=== PATIENT | female | born 1945 | race Two or more races ===

== ENCOUNTER 2022-05-11 11:25 | Inpatient (IN) | payer MEDICARE, OTHER, SELFPAY ==
[2022-05-11] VITALS (14 sets, daily range): BP systolic 117–154; BP diastolic 32–66; PULSE 71–87; RESP 14–20; TEMP 36.1–37.1; O2SAT 94–98; BMI 23.8
--- NOTE | ~2022-05-11 | NM_ITS ---
EXAMINATION: NM LUNG IMAGE PERFUSION CLINICAL INFORMATION: Coughing up blood. Question PE COMPARISON: Chest x-ray 05/11/2022 TECHNIQUE: Following intravenous administration of 3.1 mCi of technetium 99m MAA, imaging of both lungs were obtained in multiple projections. Ventilation study was not performed. FINDINGS: On perfusion exam there is normal flow seen to the entire left lung without any segmental or subsegmental defect. The right lung is expanded however there is diminished activity seen in the right upper lobe and right midlung but no focal segmental or subsegmental defects seen. There is diminished activity in right lung could be due to soft tissue attenuation due to thickening of right anterior chest wall. NM/NM pul perfusion IMPRESSION: No segmental or subsegmental defect seen in the lungs to suspect any PE. However there is diminished activity seen in the right upper and midlung likely secondary to chest wall attenuation
--- NOTE | ~2022-05-11 | XR_ITS ---
EXAMINATION: XR CHEST CLINICAL INFORMATION: Coughing up blood. COMPARISON: None TECHNIQUE: Frontal view of the chest was obtained. FINDINGS: The lungs appear clear. Post surgical changes are seen in the right lung with chain sutures in the upper lobe. The heart is mildly enlarged. The mediastinal structures are unremarkable. Mild thoracic dextro scoliosis. A pacer device is noted in place. Small hiatal hernia. XR/XR chest 1V IMPRESSION: 1. Postsurgical changes in the right lung without acute cardiopulmonary process. 2. Mild cardiac enlargement. 2. Small hiatal hernia.
--- NOTE | ~2022-05-11 | CT_ITS ---
EXAMINATION: CT ABDOMEN AND PELVIS WITHOUT CONTRAST CLINICAL INFORMATION: Weakness, bloody stool, anemia and a 2 renal insufficiency COMPARISON: None TECHNIQUE: Multidetector volumetric imaging was performed from the superior aspect of the liver through the pubic symphysis. Sagittal and coronal reformatted images were obtained on the technologist's workstation. This CT examination was performed using dose optimization techniques as appropriate, variously including the following: *Automated exposure control *Adjustment of mA and/or kV according to patient size (this includes techniques or standardized protocols for targeted exams where dose is matched to indication/reason for exam; i.e. extremities or head) *Use of iterative reconstruction technique DLP: 529 mGy-cm FINDINGS: LUNG BASES: The visualized lung bases are clear. There is a battery in the left lateral chest wall and lead extending toward the sternum. Heart is slightly enlarged. There is a small pericardial. There is an esophageal hernia. LIVER, GALLBLADDER, AND BILIARY TREE: There are cirrhotic changes of the liver. There may be small gallstones. No focal liver lesion. No biliary duct dilatation. PANCREAS: Unremarkable. SPLEEN: Unremarkable. ADRENAL GLANDS: Unremarkable. KIDNEYS AND URETERS: The kidneys are normal in size, shape, and attenuation. No hydronephrosis, hydroureter, or calculi seen. No perinephric stranding. BLADDER: Unremarkable. GASTROINTESTINAL TRACT: There is mild diverticulosis of the colon. No evidence of diverticulitis The small and large bowel are otherwise unremarkable. The appendix is unremarkable. ABDOMINAL WALL: Small umbilical hernia containing fat. LYMPH NODES: Normal. VASCULAR: There is evidence of atherosclerotic disease. No aneurysm. PELVIC VISCERA: Unremarkable. OSSEOUS STRUCTURES: Old left pubic rami fractures. No acute fracture. Degenerative changes of the spine. CT/CT abdomen pelvis wo con IMPRESSION: No acute findings. Mild cirrhotic changes of the liver. Diverticulosis of the colon. Esophageal hernia. Fleischner guidelines were followed.
--- NOTE | 2022-05-11 11:48 | ECG_ITS ---
Test Reason : weakness Blood Pressure : / mmHG Vent. Rate : 068 BPM Atrial Rate : 068 BPM P-R Int : 096 ms QRS Dur : 146 ms QT Int : 448 ms P-R-T Axes : 023 -71 063 degrees QTc Int : 476 ms Sinus rhythm with short AL Left axis deviation Right bundle branch block Septal infarct , age undetermined Abnormal ECG No previous ECGs available Referred By: Generic ED Physician Electronically Signed By:KELSIE GALVIN MD
[2022-05-11 12:02] LABS: MANUAL DIFF FLAG NO
[2022-05-11 12:08] LABS: Basophils Percent Auto 0.1 % (0-2); Eosinophils Absolute Auto 0.1 X10*3/uL (0.0-0.4); Eosinophils Percent Auto 1.6 % (0-4); Hematocrit 22.1 % (37.0-47.0); Imm Gran Abs Auto 0.06 X10*3/uL (0.00-0.03); Imm Gran Pct Auto 0.7 % (0.0-0.4); Lymphocytes Absolute Auto 1.2 X10*3/uL (1.2-4.9); Lymphocytes Percent Auto 14.2 % (20-40); Mean Corpuscular HGB Conc 31.2 g/dl (31.0-35.0); Mean Corpuscular Hemoglobin 27.8 pg (27.0-33.0); Mean Corpuscular Volume 89.1 fL (80.0-98.0); Mean Platelet Volume 9.2 fL (9.4-12.3); Monocytes Absolute Auto 0.4 X10*3/uL (0.1-1.2); Monocytes Percent Auto 4.6 % (2-11); Neutrophils Absolute Auto 6.4 x10*3/uL (2.0-8.3); Neutrophils Percent Auto 78.8 % (45-73); Platelet Count 206 X10*3/uL (160-400); Red Blood Count 2.48 X10*6/uL (4.20-5.50); Red Cell Distribution Width 17.3 % (11.0-16.0); White Blood Count 8.1 X10*3/uL (4.8-10.8)
[2022-05-11 12:15] LABS: Hemoglobin 6.9 g/dl (12.0-16.0)
[2022-05-11 12:22] LABS: Anion Gap 15 (12-20); Blood Urea Nitrogen 55 mg/dL (9-16); Calcium 8.7 mg/dL (8.4-10.2); Carbon Dioxide 21 mmol/L (22-29); Chloride 106 mmol/L (96-108); Creatinine Clr Calc Pharmacy 25.3; Estimated Glomerular Filt Rate 28; Glucose Random 115 mg/dL (60-115); Potassium 4.2 mmol/L (3.3-5.1); Sodium 138 mmol/L (135-145)
[2022-05-11 12:23] LABS: B Type Natriuretic Peptide 346 pg/mL (<100); Troponin-I High Sensitivity 15.6 ng/L (<3.5-17.0)
--- NOTE | 2022-05-11 12:47 | ED_ITS ---
HPI - Weakness General Chief complaint: General Medical Stated complaint: Anemic/Weakness Time Seen by Provider: 05/11/22 12:15 Source: patient and family (Daughter in-law bedside who is signing and telling history) Mode of arrival: ambulatory Limitations: other (Patient has a history of dementia per daughter in-law and she is deaf and is not that great with sign language per daughter in-law) History of Present Illness HPI Narrative: 77-year-old female who is deaf and non verbal, demented who also has a past me dical history of hyperlipidemia, hypertension, CHF, cardiovascular disease status post defibrillator 4-5 years ago currently on Brilinta and aspirin,, asthma, pneumothorax from coughing too hard per daughter in-law, GERD presenting to the ED with her daughter in-law who is signing and telling us the history presenting with complaints of generalized weakness, increased confusion, coughing up pink tinge sputum, with associated nausea/vomiting, abdominal pain and bright red blood stools that the [id number] noticed on . She reports she is unsure if the patient is actually vomiting up blood because she noticed blood in the stool although she is not certain about the blood in the vomit. Daughter in-law also noticed that she has been short of breath especially with walking. She reports that she is not short of breath with laying down flat. She denies any fevers, chills, dizziness, headaches, change in vision, neck pain/stiffness, chest pain, back pain, dysuria, hematuria, abn ormal vaginal discharge, palpitations or paresthesias, lower extremity edema or calf tenderness, recent travel or sick contacts or any other symptoms complaints or concerns at this time. MD Complaint: generalized weakness Onset (ago): day(s) (5) Duration: constant and progressively worsening Location: generalized Associated symptoms: confusion, nausea/vomiting and other (Cough with hemoptysis, abdominal pain and bloody stools) Related Data Allergies Allergy/AdvReac Type Severity Reaction Status Date / Time bee pollen [bee stings] Allergy Unknown Verified 05/11/22 11:45 Review of Systems Review of Systems: Constitutional : No Weight loss, No Fever, No Chills, No Night Sweats, + Fatigue, + Malaise ENT/Mouth : No Hearing loss, No Ear Pain, No Nasal Congestion, No Sinus Pain, No Hoarseness, No sore throat, No Rhinorrhea, No Swallowing Difficulty Eyes: No Eye Pain, No Swelling, No Redness, No Foreign Body, No Discharge, No Vision Changes Cardiovascular : No Chest Pain, No SOB, No Dyspnea on Exertion, No Orthopnea, No Edema, No Palpitations Respiratory : + Cough, + hemoptysis, No Sputum, No Wheezing, No Smoke Exposure, No Dyspnea Gastrointestinal : + Nausea, + Vomiting, No Diarrhea, No Constipation, + abdominal Pain, + Hematochezia, No Melena Genitourinary : no irregular bleeding, No Dysuria, No Urinary Frequency, No Hematuria, No Urinary Incontinence, No Urgency, No Flank Pain, No Urinary Flow Changes, No Hesitancy Musculoskeletal : No joint pain, + Myalgias, No Joint Swelling Skin : No Skin Lesions, No rash Neuro : + general Weakness, No focal weakness, No Numbness, No Paresthesias, No Loss of Consciousness, No Dizziness, No Headache Psych : No Anxiety/Panic, No Depression, No SI/HI/AH/VH, No Social Issues, Heme/Lymph: No Bruising, No Bleeding,No Lymphadenopathy Endocrine : No Polyuria, No Polydipsia, No Temperature Intolerance Yes all other systems are reviewed and are negative [facility] Past Medical History Attestation statement: The following information was validated with the patient. Source: old records reviewed, obtained from family and nursing notes reviewed Medical History (Updated 05/11/22 @ 17:39 by Pam Covington NP) Coronary artery disease Deaf Dementia Diverticulosis GERD (gastroesophageal reflux disease) Hiatal hernia Hypertension Liver cirrhosis Scoliosis Surgical History (Updated 05/11/22 @ 17:35 by Pam Covington NP) History of permanent cardiac pacemaker placement Social History Social History Alcohol intake: never Patient Tobacco Use Status: Never used Tobacco Use of substances other than those prescribed or required for medical reasons: No Advance Directives: Yes Advance Directives Information Provided: No Advance Directives on File: No Physical Exam Vital Signs: Vital Signs: Last Vital Signs Temp 98.2 F 05/11/22 16:55 Pulse 80 05/11/22 16:55 Resp 16 05/11/22 16:55 BP 140/60 H 05/11/22 16:55 Pulse Ox 98 05/11/22 15:36 O2 Del Method 05/11/22 15:36 BMI result Body Mass Index 23.8 vital signs have been reviewed as normal and appeared to be correct. Blood pressure 124/32. Heart rate normal. Respiration rate normal. Temperature normal. Oxygen saturation normal. Appearance: Alert. Oriented at baseline tper daughter in law. No acute distress. Head: Normal external exam. Normocephalic. Atraumatic. Eyes: PERRLA. EOMI. Conjunctiva and sclera normal. Eyelids normal. ENT: Pharynx normal. Uvula midline. Moist mucous membranes. No lesions/ulcerations or masses noted on the tongue. Normal voice. No trismus noted. No drooling noted. No muffled voice noted. Neck: Normal inspection. Neck supple. FROM. No adenopathy. Thyroid Normal. No tracheal deviation noted. No crepitus is noted. No meningeal signs. No neck mass noted. No signs of trauma noted. CVS: Normal heart rate and rhythm. Heart sound normal. Pulses normal throughout. No murmurs/rales/gallops. Respiratory: No respiratory distress. Painless inspiration. Breath sounds normal. No wheezes/rales/rhonchi noted. Chest nontender. No crepitus is noted. No signs of trauma noted. No accessory muscle usage noted or decreased air movement noted. Abdomen: Soft and mild tenderness to the right lower quadrant/suprapubic area. Bowel sounds normal in all 4 quadrants. No distention noted. No organomegaly noted. No visible injury noted. Gu: Supervised by DAVID Nuñez no hemorrhoids noted. Normal sphincter tone/rectal tone. Patient noted to have dark/light brown-colored stool no melena and no bright red blood on exam at this time. Back: No CVA tenderness. Full range of motion noted. Nontender. No signs of trauma. Patient neuro intact bilaterally and distally on all 4 extremities. Patient's reflexes intact bilaterally and distally on all 4 extremities. No rashes/lesion/induration/fluctuance or signs of infection noted. Skin: Skin warm and dry. Normal skin color. Normal skin turgor. No rashes/lesions/lacerations noted. Extremities: No lower extremity edema. No calf tenderness is noted. Extremities exhibit normal range of motion and nontender. Neuro: Oriented. No motor deficit. No sensory deficit. Reflexes normal. Normal steady gait. No focal neuro deficits noted. CN's II-XII intact bilaterally? Vascular: + radial pulses/+ 2 distal pedal pulses/+2 dorsalis pedis b/l. Normal cap refill. No cyanosis noted to upper extremity nails and lower extremity toes nails. Course Course Course Narrative: 12:35pm - 77-year-old female who is deaf and non verbal, demented who also has a past medical history of hyperlipidemia, hypertension, CHF, cardiovascular disease status post defibrillator 4-5 years ago currently on Brilinta and aspirin,, asthma, pneumothorax from coughing too hard per daughter in-law, GERD presenting to the ED with her daughter in-law who is signing and telling us the history presenting with complaints of generalized weakness, increased confusion, coughing up pink tinge sputum, with associated nausea/vomiting, abdominal pain and bright red blood stools that the [id number] noticed on . She reports she is unsure if the patient is actually vomiting up blood because she n oticed blood in the stool although she is not certain about the blood in the vomit. Daughter in-law also noticed that she has been short of breath especially with walking. She reports that she is not short of breath with laying down flat. I received a critical results from the lab of the patient's H&H of 6.9/22.1 therefore the charge nurse brought the patient back as soon as possible and I evaluate the patient as soon as possible. Plan: Will obtain blood type and screen, provide 2 L of IV fluids due to patient's SUSAN of BUN and creatinine 55/1.78. BNP 346. Troponin 15.6 will be repeated. I did also perform a stool occult. I ordered 2 packs of red blood cells and daughter in-law with patient at bedside who is agreeable sign blood transfusion consent form. Will also obtain a V/Q scan to rule out PE an a CT scan abdomen pelvis without IV contrast due to patient's kidney function to evaluate for possible intra-abdominal bleeding and re-evaluate. Reevaluation(s) Reevaluation #1: - chest x-ray revealed postsurgical changes and right lung without acute pulmonary or cardio processes. Mild cardiac enlargement. Small hiatal hernia. Otherwise no other acute processes were noted. - CT scan abdomen pelvis without IV contrast revealed mild cirrhotic changes of the liver. Diverticulosis of colon. Esophageal hernia. Otherwise no other acute processes were noted. - patient was positive stool occult. - UA revealed positive leukocytes otherwise negative for UTI at this time. - V/Q scan negative. Would mid at this time for anemia with positive stool occult and SUSAN. Time: 17:11 MDM - Weakness Medical Records Attestation: I reviewed the patient's medical records. Lab Data Attestation: I reviewed the patient's lab results. Result diagrams: 05/11/22 11:57 05/11/22 11:57 Labs: Lab Results 05/11/22 05/11/22 05/11/22 Range/Units 11:57 11:57 11:57 WBC 8.1 (4.8-10.8) X10*3/uL RBC 2.48 L (4.20-5.50) X10*6/uL Hgb 6.9 L* (12.0-16.0) g/dl Hct 22.1 L (37.0-47.0) % MCV 89.1 (80.0-98.0) fL MCH 27.8 (27.0-33.0) pg MCHC 31.2 (31.0-35.0) g/dl RDW 17.3 H (11.0-16.0) % Plt Count 206 (160-400) X10*3/uL MPV 9.2 L (9.4-12.3) fL Immature Gran % (Auto) 0.7 H (0.0-0.4) % Neut % (Auto) 78.8 H (45-73) % Lymph % (Auto) 14.2 L (20-40) % [place] % (Auto) 4.6 (2-11) % Eos % (Auto) 1.6 (0-4) % Baso % (Auto) 0.1 (0-2) % Lymph # (Auto) 1.2 (1.2-4.9) X10*3/uL [place] # (Auto) 0.4 (0.1-1.2) X10*3/uL Eos # (Auto) 0.1 (0.0-0.4) X10*3/uL Baso # (Auto) 0.0 (0.0-0.2) X10*3/uL Abs Immat Gran (auto) 0.06 H (0.00-0.03) X10*3/uL Absolute Neuts (auto) 6.4 (2.0-8.3) x10*3/uL Absolute Nucleated RBC 0.000 (0.0-0.012) X10*3/uL Nucleated RBC % (auto) 0.0 (0.0-0.2) /100WBC Sodium 138 (135-145) mmol/L Potassium 4.2 (3.3-5.1) mmol/L Chloride 106 (96-108) mmol/L Carbon Dioxide 21 L (22-29) mmol/L Anion Gap 15 (12-20) BUN 55 H (9-16) mg/dL Creatinine 1.78 H (0.5-1.4) mg/dL Estim Creat Clear Calc 25.3 Estimated GFR 28 Random Glucose 115 (60-115) mg/dL Calcium 8.7 (8.4-10.2) mg/dL Magnesium 2.1 (1.6-2.6) mg/dL Total Bilirubin 0.3 (0.0-1.0) mg/dL Direct Bilirubin < 0.2 (0.0-0.5) mg/dL AST 21 (5-31) U/L ALT 13 (0-31) U/L Alkaline Phosphatase 70 (39-117) U/L Troponin I High Sens 15.6 (<3.5-17.0) ng/L B-Natriuretic Peptide 346 H (<100) pg/mL Total Protein 6.7 (6.5-8.0) g/dL Albumin 4.0 (3.5-5.0) g/dL Lipase 76 (8-78) U/L Urine Color Urine Appearance Urine pH (5.0-8.0) Ur Specific [place] (1.005-1.025) Urine Protein (NEG-TRACE) MG/DL Urine Glucose (UA) (NEG) MG/DL Urine Ketones (NEG) MG/DL Urine Blood (NEG) Urine Nitrite (NEG) Ur Leukocyte Esterase (NEG) Urine RBC (0) /HPF Urine WBC (0-4) /HPF Ur Squamous Epith Cells /LPF Urine Bacteria /LPF Stool Occult Blood (NEGATIVE) Blood Type Antibody Screen Crossmatch 05/11/22 05/11/22 05/11/22 Range/Units 12:45 12:48 14:23 WBC (4.8-10.8) X10*3/uL RBC (4.20-5.50) X10*6/uL Hgb (12.0-16.0) g/dl Hct (37.0-47.0) % MCV (80.0-98.0) fL MCH (27.0-33.0) pg MCHC (31.0-35.0) g/dl RDW (11.0-16.0) % Plt Count (160-400) X10*3/uL MPV (9.4-12.3) fL Immature Gran % (Auto) (0.0-0.4) % Neut % (Auto) (45-73) % Lymph % (Auto) (20-40) % [place] % (Auto) (2-11) % Eos % (Auto) (0-4) % Baso % (Auto) (0-2) % Lymph # (Auto) (1.2-4.9) X10*3/uL [place] # (Auto) (0.1-1.2) X10*3/uL Eos # (Auto) (0.0-0.4) X10*3/uL Baso # (Auto) (0.0-0.2) X10*3/uL Abs Immat Gran (auto) (0.00-0.03) X10*3/uL Absolute Neuts (auto) (2.0-8.3) x10*3/uL Absolute Nucleated RBC (0.0-0.012) X10*3/uL Nucleated RBC % (auto) (0.0-0.2) /100WBC Sodium (135-145) mmol/L Potassium (3.3-5.1) mmol/L Chloride (96-108) mmol/L Carbon Dioxide (22-29) mmol/L Anion Gap (12-20) BUN (9-16) mg/dL Creatinine (0.5-1.4) mg/dL Estim Creat Clear Calc Estimated GFR Random Glucose (60-115) mg/dL Calcium (8.4-10.2) mg/dL Magnesium (1.6-2.6) mg/dL Total Bilirubin (0.0-1.0) mg/dL Direct Bilirubin (0.0-0.5) mg/dL AST (5-31) U/L ALT (0-31) U/L Alkaline Phosphatase (39-117) U/L Troponin I High Sens (<3.5-17.0) ng/L B-Natriuretic Peptide (<100) pg/mL Total Protein (6.5-8.0) g/dL Albumin (3.5-5.0) g/dL Lipase (8-78) U/L Urine Color YELLOW Urine Appearance CLEAR Urine pH 6.0 (5.0-8.0) Ur Specific [place] 1.010 (1.005-1.025) Urine Protein NEG (NEG-TRACE) MG/DL Urine Glucose (UA) NEG (NEG) MG/DL Urine Ketones NEG (NEG) MG/DL Urine Blood NEG (NEG) Urine Nitrite NEG (NEG) Ur Leukocyte Esterase 1+ H (NEG) Urine RBC 0 (0) /HPF Urine WBC 0-2 (0-4) /HPF Ur Squamous Epith Cells 1+ /LPF Urine Bacteria 1+ /LPF Stool Occult Blood POSITIVE (NEGATIVE) Blood Type A Positive Antibody Screen NEGATIVE Crossmatch See Detail 05/11/22 Range/Units 15:33 WBC (4.8-10.8) X10*3/uL RBC (4.20-5.50) X10*6/uL Hgb (12.0-16.0) g/dl Hct (37.0-47.0) % MCV (80.0-98.0) fL MCH (27.0-33.0) pg MCHC (31.0-35.0) g/dl RDW (11.0-16.0) % Plt Count (160-400) X10*3/uL MPV (9.4-12.3) fL Immature Gran % (Auto) (0.0-0.4) % Neut % (Auto) (45-73) % Lymph % (Auto) (20-40) % [place] % (Auto) (2-11) % Eos % (Auto) (0-4) % Baso % (Auto) (0-2) % Lymph # (Auto) (1.2-4.9) X10*3/uL [place] # (Auto) (0.1-1.2) X10*3/uL Eos # (Auto) (0.0-0.4) X10*3/uL Baso # (Auto) (0.0-0.2) X10*3/uL Abs Immat Gran (auto) (0.00-0.03) X10*3/uL Absolute Neuts (auto) (2.0-8.3) x10*3/uL Absolute Nucleated RBC (0.0-0.012) X10*3/uL Nucleated RBC % (auto) (0.0-0.2) /100WBC Sodium (135-145) mmol/L Potassium (3.3-5.1) mmol/L Chloride (96-108) mmol/L Carbon Dioxide (22-29) mmol/L Anion Gap (12-20) BUN (9-16) mg/dL Creatinine (0.5-1.4) mg/dL Estim Creat Clear Calc Estimated GFR Random Glucose (60-115) mg/dL Calcium (8.4-10.2) mg/dL Magnesium (1.6-2.6) mg/dL Total Bilirubin (0.0-1.0) mg/dL Direct Bilirubin (0.0-0.5) mg/dL AST (5-31) U/L ALT (0-31) U/L Alkaline Phosphatase (39-117) U/L Troponin I High Sens 16.5 (<3.5-17.0) ng/L B-Natriuretic Peptide (<100) pg/mL Total Protein (6.5-8.0) g/dL Albumin (3.5-5.0) g/dL Lipase (8-78) U/L Urine Color Urine Appearance Urine pH (5.0-8.0) Ur Specific [place] (1.005-1.025) Urine Protein (NEG-TRACE) MG/DL Urine Glucose (UA) (NEG) MG/DL Urine Ketones (NEG) MG/DL Urine Blood (NEG) Urine Nitrite (NEG) Ur Leukocyte Esterase (NEG) Urine RBC (0) /HPF Urine WBC (0-4) /HPF Ur Squamous Epith Cells /LPF Urine Bacteria /LPF Stool Occult Blood (NEGATIVE) Blood Type Antibody Screen Crossmatch Imaging Data Chest x-ray: Attestation: I personally reviewed and interpreted this imaging study as follows: Radiologist's impression: FINDINGS: The lungs appear clear. Post surgical changes are seen in the right lung with chain sutures in the upper lobe. The heart is mildly enlarged. The mediastinal structures are unremarkable. Mild thoracic dextro scoliosis. A pacer device is noted in place. Small hiatal hernia. XR/XR chest 1V IMPRESSION: 1. Postsurgical changes in the right lung without acute cardiopulmonary process. 2. Mild cardiac enlargement. 2. Small hiatal hernia. ? CT scan abdomen pelvis without IV contrast: Attestation: I personally reviewed and interpreted this imaging study as follows: Radiologist's impression: FINDINGS: LUNG BASES: The visualized lung bases are clear. There is a battery in the left lateral chest wall and lead extending toward the sternum. Heart is slightly enlarged. There is a small pericardial. There is an esophageal hernia. LIVER, GALLBLADDER, AND BILIARY TREE: There are cirrhotic changes of the liver. There may be small gallstones. No focal liver lesion. No biliary duct dilatation. PANCREAS: Unremarkable.? SPLEEN: Unremarkable.? ADRENAL GLANDS: Unremarkable.? KIDNEYS AND URETERS: The kidneys are normal in size, shape, and attenuation. No hydronephrosis, hydroureter, or calculi seen. No perinephric stranding. ? BLADDER: Unremarkable.? GASTROINTESTINAL TRACT: There is mild diverticulosis of the colon. No evidence of diverticulitis The small and large bowel are otherwise unremarkable. The appendix is unremarkable.? ABDOMINAL WALL: Small umbilical hernia containing fat.? LYMPH NODES: Normal. VASCULAR: There is evidence of atherosclerotic disease. No aneurysm. PELVIC VISCERA: Unremarkable.? OSSEOUS STRUCTURES: Old left pubic rami fractures. No acute fracture. Degenerative changes of the spine.? CT/CT abdomen pelvis wo con IMPRESSION: No acute findings. Mild cirrhotic changes of the liver. Diverticulosis of the colon. Esophageal hernia. ? Fleischner guidelines were followed. V/Q scan: Attestation: I personally reviewed and interpreted this imaging study as follows: Radiologist's impression: TECHNIQUE: Following intravenous administration of 3.1 mCi of technetium 99m MAA, imaging of both lungs were obtained in multiple projections. Ventilation study was not performed. FINDINGS: On perfusion exam there is normal flow seen to the entire left lung without any segmental or subsegmental defect. The right lung is expanded however there is diminished activity seen in the right upper lobe and right midlung but no focal segmental or subsegmental defects seen. There is diminished activity in right lung could be due to soft tissue attenuation due to thickening of right anterior chest wall. NM/NM pul perfusion IMPRESSION: No segmental or subsegmental defect seen in the lungs to suspect any PE. However there is diminished activity seen in the right upper and midlung likely secondary to chest wall attenuation ECG Data Attestation: I personally reviewed and interpreted this ECG as follows: ECG interpretation date: 05/11/22 ECG interpretation time: 11:52 Interpretation: Sinus rhythm with short [place] interval with ventricular rate of 68 with a left axis deviation right bundle-branch block no acute ischemic change are noted. No prior EKGs to compare to at this time. Critical Care Time Critical Care Time Critical Care Time: Yes Total Critical Care Time: 60 Attestation: I personally attest to this time spent taking care of the patient Discharge Plan Discharge Clinical Impression: Anemia, General weakness, SUSAN (acute kidney injury), Fecal occult blood test positive, Diverticulosis Patient Disposition: Admitted As Inpatient
[2022-05-11 12:58] LABS: OBS Int Ctl Valid YES; OBS1 POSITIVE (NEGATIVE)
--- NOTE | 2022-05-11 13:09 | PC.NURSE ---
pt came in with daughter in law for dizziness and confusion, pt's DIL states that she has been like this for the last 4 days; pt is deaf and communicates via sign language, pt uses a walker when out of the house
[2022-05-11] MEDS: 0.9 % Sodium Chloride 1,000 ML 999 ML IVCONT ×2 (13:15→13:16)
[2022-05-11 14:34] LABS: Appearance Urine CLEAR; Color Urine YELLOW; Glucose Urine UA NEG (NEG); Leukocyte Esterase Urine 1+ (NEG); Nitrite Urine NEG (NEG); UACC Culture Trigger YES; Urine Blood NEG (NEG); Urine Ketones NEG (NEG); Urine Protein NEG (NEG-TRACE)
[2022-05-11 14:44] LABS: Alanine Aminotransferase 13 U/L (0-31); Alkaline Phosphatase 70 U/L (39-117); Aspartate Amino Transferase 21 U/L (5-31); Bilirubin Direct < 0.2 mg/dL (0.0-0.5); Bilirubin Total 0.3 mg/dL (0.0-1.0); Lipase 76 U/L (8-78); Magnesium 2.1 mg/dL (1.6-2.6); Total Protein 6.7 g/dL (6.5-8.0)
[2022-05-11 15:17] LABS: Bacteria Urine 1+ /LPF; Squamous Epithelial Cell Urine 1+ /LPF
[2022-05-11 15:18] LABS: RBC Urine 0 /HPF (0); WBC Urine 0-2 /HPF (0-4)
[2022-05-11 16:06] LABS: Troponin-I High Sensitivity 16.5 ng/L (<3.5-17.0)
--- NOTE | 2022-05-11 17:29 | P.HPHOSP_ITS ---
History of Present Illness Date of Service: 05/11/22 Chief Complaint: blood in stool 69-year-old woman stenting to the ER after being seen by her primary care provider after being found to have bright red blood per rectum per her zonndvuz-qx-adz with whom she lives with. Her efygvvso-nq-vjy was present during the interview and was able to use sign language to translate. She has had generalized weakness, increased confusion and possibly coughing up food pink-tinged sputum with associated nausea vomiting and lower abdominal pain. She has had bright red blood stools that the [id number] had noticed last . The xfokfrcl-lh-rig is unable to quantify any amount of red blood vomitus. Apparently the patient has also had some shortness of breath especially with ambulation. According to the rpfofzlj-yl-hey she has not had any fever, chills, diarrhea, recent travel, recent illness, sick contacts. In the ER, her H&H was noted to be 6.9/22.1, creatinine 1.78 without known baseline , stool occult positive, stable blood pressure, 2 units of packed red blood cells were ordered. Patient be admitted for further management and treatment of acute blood loss anemia. Review of Systems Review of Systems: Yes Unobtainable due to mental status (Difficult to assess as patient is deaf and has a history of dementia) [facility] Medical History Coronary artery disease Deaf Dementia Diverticulosis GERD (gastroesophageal reflux disease) Hiatal hernia Hypertension Liver cirrhosis Scoliosis Surgical History History of permanent cardiac pacemaker placement Social History Household Members: Children Housing: House Do you presently have visiting nurse or other home services: Yes Alcohol intake: never Patient Tobacco Use Status: Never used Tobacco Use of substances other than those prescribed or required for medical reasons: No Currently Displaying Signs/Symptoms of Drug Intoxication Withdrawal: No Have you been hit, kicked, punched, or otherwise hurt by someone within the past year? If so, by whom?: No Do you feel safe in your current relationship?: Yes Is there a partner from a previous relationship who is making you feel unsafe now?: No Are you made to feel afraid or neglected: No Advance Directives: Yes Advance Directives Information Provided: No Advance Directives on File: No Advance Directives Date on File: 05/11/22 Do you have thoughts of harming others: None Do you have a plan to hurt others: No Plan Recently lost weight without trying: No Nutrition Risks: Difficulty swallowing Patient : No service: No Current occupational status: disabled Meds Allergies Allergy/AdvReac Type Severity Reaction Status Date / Time bee pollen [bee stings] Allergy Unknown Verified 05/11/22 11:45 Active Medications: Current Medications Pharmacy Consult (Consult Rx Perform Med Rec) 1 each MISCELLANE ONCE PRN PRN Reason: Consult order Home Medications Medication Instructions Recorded Confirmed Last Taken Type albuterol sulfate 90 mcg/actuation 2 puff inhalation Q4H PRN Wheezing 05/11/22 05/11/22 Unknown History aerosol inhaler (ProAir HFA) apixaban 5 mg tablet (Eliquis) 1 tab PO BID 05/11/22 05/11/22 05/10/22 History aspirin 81 mg chewable tablet 81 mg PO DAILY 05/11/22 05/11/22 05/10/22 History atorvastatin 80 mg tablet 1 tab PO DAILY 05/11/22 05/11/22 05/10/22 History calcium carbonate 600 mg-vitamin 1 tab PO TID 05/11/22 05/11/22 05/10/22 History D3 5 mcg (200 unit) tablet (Calcium 600 + D(3)) carvedilol 6.25 mg tablet 1 tab PO BID 05/11/22 05/11/22 05/10/22 History fluoxetine 40 mg capsule 1 cap PO DAILY 05/11/22 05/11/22 05/10/22 History furosemide 40 mg tablet 1 tab PO DAILY 05/11/22 05/11/22 05/10/22 History gabapentin 100 mg capsule 1 cap PO BID PRN foot pain 05/11/22 05/11/22 Unknown History nitroglycerin 0.4 mg sublingual 0.4 mg sublingual Q5M PRN Chest 05/11/22 0 05/11/22 Unknown History tablet Pain omeprazole 20 mg capsule,delayed 1 cap PO DAILY 05/11/22 05/11/22 05/10/22 History release potassium chloride 20 mEq oral 1 packet PO DAILY 05/11/22 05/11/22 05/10/22 History packet valsartan 40 mg tablet 1 tab PO BID 05/11/22 05/11/22 05/10/22 History Physical Exam Vital Signs and Narrative: Vital Signs: Last Vital Signs Temp 98.2 F 05/11/22 16:55 Pulse 80 05/11/22 16:55 Resp 16 05/11/22 16:55 BP 140/60 H 05/11/22 16:55 Pulse Ox 98 05/11/22 15:36 O2 Del Method 05/11/22 15:36 BMI result Body Mass Index 23.8 Appearing in no acute distress head is normocephalic atraumatic eyes pupils are PERRLA sclera is anicteric mouth throat mucous membranes are intact and moist neck is supple no lymphadenopathy, no JVD noted lung sounds are clear to auscultation heart regular rate rhythm, clear S1, S2 positive bowel sounds, abdomen is soft, nontender neuro patient is alert, deaf Results Labs CBC and Chem 7: 05/12/22 06:10 05/12/22 06:10 Labs: Laboratory Results - last 24 hr 05/11/22 05/11/22 05/11/22 11:57 11:57 11:57 MCV 89.1 MCH 27.8 MCHC 31.2 RDW 17.3 H Plt Count 206 MPV 9.2 L Immature Gran % (Auto) 0.7 H Neut % (Auto) 78.8 H Lymph % (Auto) 14.2 L [place] % (Auto) 4.6 Eos % (Auto) 1.6 Baso % (Auto) 0.1 Lymph # (Auto) 1.2 [place] # (Auto) 0.4 Eos # (Auto) 0.1 Baso # (Auto) 0.0 Abs Immat Gran (auto) 0.06 H Absolute Neuts (auto) 6.4 Absolute Nucleated RBC 0.000 Nucleated RBC % (auto) 0.0 Anion Gap 15 Estim Creat Clear Calc 25.3 Estimated GFR 28 Random Glucose 115 Calcium 8.7 Magnesium 2.1 Total Bilirubin 0.3 Direct Bilirubin < 0.2 AST 21 ALT 13 Alkaline Phosphatase 70 B-Natriuretic Peptide 346 H Total Protein 6.7 Albumin 4.0 Lipase 76 Urine Color Urine Appearance Urine pH Ur Specific [place] Urine Protein Urine Glucose (UA) Urine Ketones Urine Blood Urine Nitrite Ur Leukocyte Esterase Urine RBC Urine WBC Ur Squamous Epith Cells Urine Bacteria Stool Occult Blood Blood Type Antibody Screen Crossmatch 05/11/22 05/11/22 05/11/22 12:45 12:48 14:23 MCV MCH MCHC RDW Plt Count MPV Immature Gran % (Auto) Neut % (Auto) Lymph % (Auto) [place] % (Auto) Eos % (Auto) Baso % (Auto) Lymph # (Auto) [place] # (Auto) Eos # (Auto) Baso # (Auto) Abs Immat Gran (auto) Absolute Neuts (auto) Absolute Nucleated RBC Nucleated RBC % (auto) Anion Gap Estim Creat Clear Calc Estimated GFR Random Glucose Calcium Magnesium Total Bilirubin Direct Bilirubin AST ALT Alkaline Phosphatase B-Natriuretic Peptide Total Protein Albumin Lipase Urine Color YELLOW Urine Appearance CLEAR Urine pH 6.0 Ur Specific [place] 1.010 Urine Protein NEG Urine Glucose (UA) NEG Urine Ketones NEG Urine Blood NEG Urine Nitrite NEG Ur Leukocyte Esterase 1+ H Urine RBC 0 Urine WBC 0-2 Ur Squamous Epith Cells 1+ Urine Bacteria 1+ Stool Occult Blood POSITIVE Blood Type A Positive Antibody Screen NEGATIVE Crossmatch See Detail Imaging Radiologist's Impressions: Impressions Chest X-Ray 05/11/22 12:08 IMPRESSION: 1. Postsurgical changes in the right lung without acute cardiopulmonary process. 2. Mild cardiac enlargement. 2. Small hiatal hernia. Abdomen/Pelvis CT 05/11/22 13:28 IMPRESSION: No acute findings. Mild cirrhotic changes of the liver. Diverticulosis of the colon. Esophageal hernia. Fleischner guidelines were followed. Pulmonary Perfusion Imaging 05/11/22 16:30 IMPRESSION: No segmental or subsegmental defect seen in the lungs to suspect any PE. However there is diminished activity seen in the right upper and midlung likely secondary to chest wall attenuation Assessment and Plan (1) Anemia: Status: Acute Plan 77-year-old woman admitted with acute blood loss anemia with history of being been having dementia. [facility] records have been requested as that was the last hospitalization that she had. Acute blood loss anemia H&H 6.9.1, stool occult positive Order for 2 units of packed red blood cells Follow H&H Ppi GI consultation SUSAN. Unspecified. Baseline unknown Continue with blood transfusion and volume If no improvement consider Nephrology consultation Hypertension Hold medications for now as patient is severely anemic, avoid hypotension continue when blood pressure allows Coronary artery disease Hold asa ? afib hx vs arrythmia has AICD Eliquis listed on med rec please verify with records from [facility] DVT prophylaxis with pneumatic compression boots Attending Dr. Vela Full code Patient likely requires 2 midnights in the hospital for treatment of severe acute blood loss anemia SUSAN requiring blood transfusions, frequent monitoring Quality Stroke Does the patient have a stroke diagnosis?: No VTE Prior VTE?: No VTE Risk Level:: Medical - moderate - high VTE Device Contraindication: N/A - Device Ordered VTE Drug Contraindication: Treatment Not Indicated
--- NOTE | 2022-05-11 18:04 | PC.NURSE ---
PATIENT DAUGHTER IN LAW AT BEDSIDE .
--- NOTE | 2022-05-11 18:18 | PHA.MEDREC ---
Pharmacy Consult ? Medication Reconciliation Pharmacy has completed the medication reconciliation.
--- NOTE | 2022-05-11 18:53 | PC.NURSE ---
Gave report to Niharika SANCHEZ in ED overflow.
--- NOTE | 2022-05-11 19:08 | MHC.CM.PN ---
[facility] 05/11. CM met with patient and daughter in law/HCP Roxanne Gonzalez ([phone]). Son/HCP Raf Gonzalez (same phone number). Pt lives with family. Has life alert and wheeled walker. No services. Pt signs and reads lips. DIL signing. DIL tells CM that patient has dementia and sometimes signs poorly/confused. Vax/boosted x1/[employer]. HCP copy at home. D/C plan: home without services. Family to transport. CM to follow for d/c needs.
[2022-05-11 20:33] LABS: COVID-19 Test Negative (Negative)
[2022-05-11] MEDS: carvediloL 6.25 MG TABLET PO (20:50)
[2022-05-11] MEDS: Calcium + Vitamin D 250 MG TABLET PO (20:50)
[2022-05-11 22:38] LABS: Hematocrit 26.8 % (37.0-47.0); Hemoglobin 8.8 g/dl (12.0-16.0)
[2022-05-12] MEDS: 0.9 % Sodium Chloride Flush 3 ML SYRINGE IVFLUSH ×4 (00:25→23:43)
[2022-05-12] MEDS: Acetaminophen 325 MG TABLET 650 MG PO ×2 (00:31→21:07)
[2022-05-12 03:36] VITALS: BP 144/65; PULSE 70; RESP 18; TEMP 36.1; O2SAT 96
[2022-05-12] MEDS: Omeprazole 20 MG CAPSULE.DR PO (06:12)
[2022-05-12 06:32] LABS: MANUAL DIFF FLAG NO
[2022-05-12 06:46] LABS: Basophils Percent Auto 0.4 % (0-2); Eosinophils Absolute Auto 0.1 X10*3/uL (0.0-0.4); Eosinophils Percent Auto 2.5 % (0-4); Hematocrit 26.8 % (37.0-47.0); Hemoglobin 8.5 g/dl (12.0-16.0); Imm Gran Abs Auto 0.03 X10*3/uL (0.00-0.03); Imm Gran Pct Auto 0.7 % (0.0-0.4); Lymphocytes Absolute Auto 1.1 X10*3/uL (1.2-4.9); Lymphocytes Percent Auto 25.4 % (20-40); Mean Corpuscular HGB Conc 31.7 g/dl (31.0-35.0); Mean Corpuscular Hemoglobin 27.5 pg (27.0-33.0); Mean Corpuscular Volume 86.7 fL (80.0-98.0); Mean Platelet Volume 9.9 fL (9.4-12.3); Monocytes Absolute Auto 0.3 X10*3/uL (0.1-1.2); Monocytes Percent Auto 7.4 % (2-11); Neutrophils Absolute Auto 2.9 x10*3/uL (2.0-8.3); Neutrophils Percent Auto 63.6 % (45-73); Platelet Count 162 X10*3/uL (160-400); Red Blood Count 3.09 X10*6/uL (4.20-5.50); Red Cell Distribution Width 17.6 % (11.0-16.0); White Blood Count 4.5 X10*3/uL (4.8-10.8)
[2022-05-12 06:54] LABS: Anion Gap 12 (12-20); Blood Urea Nitrogen 38 mg/dL (9-16); Calcium 8.3 mg/dL (8.4-10.2); Carbon Dioxide 21 mmol/L (22-29); Chloride 113 mmol/L (96-108); Creatinine Clr Calc Pharmacy 38.8; Estimated Glomerular Filt Rate 45; Glucose Random 95 mg/dL (60-115); Potassium 4.3 mmol/L (3.3-5.1); Sodium 142 mmol/L (135-145)
[2022-05-12 07:22] VITALS: BP 133/61; PULSE 64; RESP 16; TEMP 36.2; O2SAT 95
[2022-05-12] MEDS: Potassium Chloride Packet 20 MEQ PACKET PO (08:28)
[2022-05-12] MEDS: FLUoxetine HCl 20 MG CAPSULE 40 MG PO (08:29)
[2022-05-12] MEDS: carvediloL 6.25 MG TABLET PO ×2 (08:29→21:07)
[2022-05-12] MEDS: Calcium + Vitamin D 250 MG TABLET PO ×3 (08:29→21:07)
[2022-05-12 11:15] VITALS: BP 139/63; PULSE 59; RESP 18; TEMP 36.3; O2SAT 96
--- NOTE | 2022-05-12 14:08 | P.PNIM_ITS ---
Subjective Subjective Date of Service: 05/12/22 Interval History: Patient is deaf, communicating through writing, patient offers no complaints of headache, no nausea, no vomiting, no hemoptysis, no hematemesis, denies abdominal pain, no bright red blood per rectum, no hematochezia or melena Review of Systems Review of Systems: Yes all other systems are reviewed and are negative Physical Exam Vital Signs: Vital Signs: Last Vital Signs Temp 97.4 F 05/12/22 11:15 Pulse 59 05/12/22 11:15 Resp 18 05/12/22 11:15 BP 139/63 05/12/22 11:15 Pulse Ox 96 05/12/22 11:15 O2 Del Method 05/12/22 11:15 BMI result Body Mass Index 23.8 Const: Other: General awake alert x3, resting comfortably in no acute distress. Neck supple no JVD. CVS regular rate rhythm, Respiratory lungs clear to auscultation, no respiratory distress, no wheeze, no rhonchi. Gastrointestinal abdomen soft, nontender, bowel sounds audible, no guarding , no rigidity. Extremities no edema. Neuro nonfocal Skin no rash Psych appropriate affect Objective Data Active Medications Acetaminophen (Acetaminophen 325 Mg Tablet) 650 mg PO Q6H PRN PRN Reason: Pain, Mild (Pain Scale 1-3) Last Admin: 05/12/22 00:31 Dose: 650 mg Documented By: VISHAL Albuterol Sulfate (Albuterol Sulfate 90 Mcg 8 Gm Inhaler) 2 puff INHALE Q4H PRN PRN Reason: Wheezing Calcium Carbonate/Cholecalciferol (Calcium + Vitamin D 250 Mg Tablet) 250 mg PO TID [facility] Last Admin: 05/12/22 08:29 Dose: 250 mg Documented By: CAROLINA Carvedilol (Carvedilol 6.25 Mg Tablet) 6.25 mg PO BID [facility]; Protocol Last Admin: 05/12/22 08:29 Dose: 6.25 mg Documented By: CAROLINA Fluoxetine HCl (Fluoxetine Hcl 20 Mg Capsule) 40 mg PO DAILY [facility] Last Admin: 05/12/22 08:29 Dose: 40 mg Documented By: CAROLINA Gabapentin (Gabapentin 100 Mg Capsule) 100 mg PO BID PRN PRN Reason: foot pain Nitroglycerin (Nitroglycerin 0.4 Mg Tab.Subl) 0.4 mg SUBLINGUAL Q5M PRN PRN Reason: Chest Pain Omeprazole (Omeprazole 20 Mg Capsule.Dr) 20 mg PO DAILY@0630 [facility] Last Admin: 05/12/22 06:12 Dose: 20 mg Documented By: VISHAL Ondansetron HCl (Ondansetron Hcl 4 Mg/2 Ml Vial) 4 mg IVPUSH Q8H PRN PRN Reason: Nausea and Vomiting Pharmacy Consult (Consult Rx Perform Med Rec) 1 each MISCELLANE ONCE PRN PRN Reason: Consult order Potassium Chloride (Potassium Chloride Packet 20 Meq Packet) 20 meq PO DAILY [facility] Last Admin: 05/12/22 08:28 Dose: 20 meq Documented By: CAROLINA Sodium Chloride (0.9 % Sodium Chloride Flush 3 Ml Syringe) 3 ml IVFLUSH QSHIFT [facility] Last Admin: 05/12/22 08:28 Dose: 3 ml Documented By: CAROLINA Labs CBC & Chem 7: 05/12/22 06:10 05/12/22 06:10 Labs: Laboratory Results - last 24 hr 05/11/22 05/11/22 05/11/22 11:57 12:48 14:23 MCV MCH MCHC RDW Plt Count MPV Immature Gran % (Auto) Neut % (Auto) Lymph % (Auto) [place] % (Auto) Eos % (Auto) Baso % (Auto) Lymph # (Auto) [place] # (Auto) Eos # (Auto) Baso # (Auto) Abs Immat Gran (auto) Absolute Neuts (auto) Absolute Nucleated RBC Nucleated RBC % (auto) Anion Gap Estim Creat Clear Calc Estimated GFR Random Glucose Calcium Magnesium 2.1 Total Bilirubin 0.3 Direct Bilirubin < 0.2 AST 21 ALT 13 Alkaline Phosphatase 70 Total Protein 6.7 Albumin 4.0 Lipase 76 Urine Color YELLOW Urine Appearance CLEAR Urine pH 6.0 Ur Specific [place] 1.010 Urine Protein NEG Urine Glucose (UA) NEG Urine Ketones NEG Urine Blood NEG Urine Nitrite NEG Ur Leukocyte Esterase 1+ H Urine RBC 0 Urine WBC 0-2 Ur Squamous Epith Cells 1+ Urine Bacteria 1+ COVID-19 (RUPERTO) COVID-19 Clin Com Blood Type A Positive Antibody Screen NEGATIVE Crossmatch See Detail 05/11/22 05/12/22 05/12/22 20:06 06:10 06:10 MCV 86.7 MCH 27.5 MCHC 31.7 RDW 17.6 H Plt Count 162 MPV 9.9 Immature Gran % (Auto) 0.7 H Neut % (Auto) 63.6 Lymph % (Auto) 25.4 [place] % (Auto) 7.4 Eos % (Auto) 2.5 Baso % (Auto) 0.4 Lymph # (Auto) 1.[address] [place] # (Auto) 0.3 Eos # (Auto) 0.1 Baso # (Auto) 0.0 Abs Immat Gran (auto) 0.03 Absolute Neuts (auto) 2.9 Absolute Nucleated RBC 0.000 Nucleated RBC % (auto) 0.0 Anion Gap 12 Estim Creat Clear Calc 38.8 Estimated GFR 45 Random Glucose 95 Calcium 8.3 L Magnesium Total Bilirubin Direct Bilirubin AST ALT Alkaline Phosphatase Total Protein Albumin Lipase Urine Color Urine Appearance Urine pH Ur Specific [place] Urine Protein Urine Glucose (UA) Urine Ketones Urine Blood Urine Nitrite Ur Leukocyte Esterase Urine RBC Urine WBC Ur Squamous Epith Cells Urine Bacteria COVID-19 (RUPERTO) Negative COVID-19 Clin Com See Note Blood Type Antibody Screen Crossmatch Microbiology Microbiology Results: Microbiology 05/11/22 15:05 Urine Culture - Preliminary Urine clean catch - Urine johns top Enterococcus/Streptococcus sp Assessment and Plan (1) General weakness: Status: Acute (2) Anemia: Status: Acute (3) SUSAN (acute kidney injury): Status: Acute (4) Fecal occult blood test positive: Status: Acute Plan 77-year-old woman admitted with acute blood loss anemia with history of being been having dementia.? [facility] records have been requested as that was the last hospitalization that she had. Acute blood loss anemia No episodes of hematemesis, bright red blood per rectum or hematochezia since admission H&H 6.9/22.1 on admission improved to 8.5/26.8 after 2 units of packed RBC stool occult positive on admission Will check iron studies/normal MCV Continue PPI, since patient is hemodynamically stable with no active bleed plan is to follow CBC next 24 hours if remains stable will discharge her home and will have outpatient endoscopy by Dr Agee early next week SUSAN.? Resolved Hypertension BP stable, home medications on hold follow BP and resume meds as tolerated Coronary artery disease Hold asa resume after GI workup as per GI recommendation Atrial fibrillation has AICD, on Eliquis will hold Eliquis, will recommend to resume after GI workup as per Gastroenterology DVT prophylaxis with pneumatic compression boots Full code Patient will need continued inpatient hospitalization due to severe acute blood loss anemia, need close CBC monitoring. spoke with patient's daughter in law Darby Gonzalez and updated her about treatment plan. Quality Stroke Does the patient have a stroke diagnosis?: No VTE Prior VTE?: No VTE Risk Level:: Medical - moderate - high VTE Device Contraindication: N/A - Device Ordered VTE Drug Contraindication: Treatment Not Indicated
[2022-05-12 15:38] VITALS: BP 130/68; PULSE 65; RESP 16; TEMP 36.1; O2SAT 95
[2022-05-12 20:00] VITALS: BP 141/61; PULSE 78; RESP 17; TEMP 36.3; O2SAT 94
--- NOTE | 2022-05-12 20:09 | PM.GICN ---
History of Present Illness Data of Consult Service Date: 05/12/22 Requesting physician: Jennifer Ennis Primary Care Provider: Jeremy Dennison MD HPI Reason for consult: anemia 69-year-old woman w hx of diverticulosis, dementia, HLP and HTN who I am seeing for assessment for anemia. Limited data from patient due to dementia and deafness, hx from daughter in law Alexus who is HCP. PAtient noted by daughter to have fresh blood in stool at least on one occasion, lso been general unwell for several weeks with poor appetite, weakness and nausea with non bloody emesis. Patient hs not been c/o abdominal pain, no chest pain but has been SOB labs with HGB 6.9 received 2 units and incremented appropriately to close to 9 g/dl. Not had any bleeding noted since stay in hospital for last few days, been eating food given to her. Unknown if she has had egd, colonoscopy in past. she is on eliquis and aspirin and these have been held. Imaging with possible cirrhosis but normal LFT< per daughter she was a heavy vodka drinker up till 5 yrs ago Review of Systems Review of Systems: Yes Unobtainable due to mental condition and Unobtainable due to mental status PMFSH Past Medical History Medical History (Updated 05/12/22 @ 20:28 by Cristina Garner MD) Coronary artery disease Deaf Dementia Diverticulosis GERD (gastroesophageal reflux disease) Hiatal hernia Hypertension Liver cirrhosis Scoliosis Family History Pertinent family history: unknown Surgical History Surgical History History of permanent cardiac pacemaker placement Social History Social History Household Members: Children Housing: House Do you presently have visiting nurse or other home services: Yes Alcohol intake: never Patient Tobacco Use Status: Never used Tobacco Advance Directives Date on File: 05/11/22 service: No Current occupational status: disabled Meds Allergies Allergy/AdvReac Type Severity Reaction Status Date / Time bee pollen [bee stings] Allergy Unknown Verified 05/11/22 11:45 Active Medications: Current Medications Acetaminophen (Acetaminophen 325 Mg Tablet) 650 mg PO Q6H PRN PRN Reason: Pain, Mild (Pain Scale 1-3) Last Admin: 05/12/22 00:31 Dose: 650 mg Albuterol Sulfate (Albuterol Sulfate 90 Mcg 8 Gm Inhaler) 2 puff INHALE Q4H PRN PRN Reason: Wheezing Calcium Carbonate/Cholecalciferol (Calcium + Vitamin D 250 Mg Tablet) 250 mg PO TID [facility] Last Admin: 05/12/22 15:05 Dose: 250 mg Carvedilol (Carvedilol 6.25 Mg Tablet) 6.25 mg PO BID [facility]; Protocol Last Admin: 05/12/22 08:29 Dose: 6.25 mg Fluoxetine HCl (Fluoxetine Hcl 20 Mg Capsule) 40 mg PO DAILY [facility] Last Admin: 05/12/22 08:29 Dose: 40 mg Gabapentin (Gabapentin 100 Mg Capsule) 100 mg PO BID PRN PRN Reason: foot pain Nitroglycerin (Nitroglycerin 0.4 Mg Tab.Subl) 0.4 mg SUBLINGUAL Q5M PRN PRN Reason: Chest Pain Omeprazole (Omeprazole 20 Mg Capsule.Dr) 20 mg PO DAILY@0630 [facility] Last Admin: 05/12/22 06:12 Dose: 20 mg Ondansetron HCl (Ondansetron Hcl 4 Mg/2 Ml Vial) 4 mg IVPUSH Q8H PRN PRN Reason: Nausea and Vomiting Pharmacy Consult (Consult Rx Perform Med Rec) 1 each MISCELLANE ONCE PRN PRN Reason: Consult order Potassium Chloride (Potassium Chloride Packet 20 Meq Packet) 20 meq PO DAILY [facility] Last Admin: 05/12/22 08:28 Dose: 20 meq Sodium Chloride (0.9 % Sodium Chloride Flush 3 Ml Syringe) 3 ml IVFLUSH QSHIFT [facility] Last Admin: 05/12/22 15:05 Dose: 3 ml Home Medications Medication Instructions Recorded Confirmed Last Taken Type albuterol sulfate 90 mcg/actuation 2 puff inhalation Q4H PRN Wheezing 05/11/22 05/11/22 Unknown History aerosol inhaler (ProAir HFA) apixaban 5 mg tablet (Eliquis) 1 tab PO BID 05/11/22 05/11/22 05/10/22 History aspirin 81 mg chewable tablet 81 mg PO DAILY 05/11/22 05/11/22 05/10/22 History atorvastatin 80 mg tablet 1 tab PO DAILY 05/11/22 05/11/22 05/10/22 History calcium carbonate 600 mg-vitamin 1 tab PO TID 05/11/22 05/11/22 05/10/22 History D3 5 mcg (200 unit) tablet (Calcium 600 + D(3)) carvedilol 6.25 mg tablet 1 tab PO BID 05/11/22 05/11/22 05/10/22 History fluoxetine 40 mg capsule 1 cap PO DAILY 05/11/22 05/11/22 05/10/22 History furosemide 40 mg tablet 1 tab PO DAILY 05/11/22 05/11/22 05/10/22 History gabapentin 100 mg capsule 1 cap PO BID PRN foot pain 05/11/22 05/11/22 Unknown History nitroglycerin 0.4 mg sublingual 0.4 mg sublingual Q5M PRN Chest 05/11/22 05/11/22 Unknown History tablet Pain omeprazole 20 mg capsule,delayed 1 cap PO DAILY 05/11/22 05/11/22 05/10/22 History release potassium chloride 20 mEq oral 1 packet PO DAILY 05/11/22 05/11/22 05/10/22 History packet valsartan 40 mg tablet 1 tab PO BID 05/11/22 05/11/22 05/10/22 History Physical Exam Vital Signs: Vital Signs: Last Vital Signs Temp 96.9 F 05/12/22 15:38 Pulse 65 05/12/22 15:38 Resp 16 05/12/22 15:38 BP 130/68 05/12/22 15:38 Pulse Ox 95 05/12/22 15:38 O2 Del Method 05/12/22 15:38 BMI result Body Mass Index 23.8 EXAM: GENERAL: The patient is frail VITAL SIGNS:see workflow HEENT: Nonicteric sclerae, PERRLA, EOMI. Oropharynx clear. Moist mucous membranes. Conjunctivae appear well perfused. No thyroid mass. CHEST: Chest wall is nontender. HEART: Regular rate and rhythm without murmurs. LUNGS: Clear to auscultation bilaterally. ABDOMEN: Soft, positive bowel sounds, nontender, no organomegaly.no flank tenderness, SKIN: No rash, no excessive bruising, petechiae, or purpura. NEUROLOGIC: Cranial nerves II-XII intact without motor/sensory deficit. psych- unable to eval but relaxed Results Labs CBC & Chem 7: 05/12/22 06:10 05/12/22 06:10 Labs: Short CBC 05/11/22 05/12/22 Range/Units 22:21 06:10 WBC 4.5 L (4.8-10.8) X10*3/uL Hgb 8.8 L D 8.5 L (12.0-16.0) g/dl Hct 26.8 L D 26.8 L (37.0-47.0) % Plt Count 162 (160-400) X10*3/uL BMP 05/12/22 06:10 Sodium 142 Potassium 4.3 Chloride 113 H Carbon Dioxide 21 L BUN 38 H Creatinine 1.16 Calcium 8.3 L Microbiology Microbiology Results: Microbiology 05/11/22 15:05 Urine clean catch - Urine johns top Urine Culture - Preliminary Enterococcus/Streptococcus sp Imaging CT scan - abdomen: Attestation: I personally reviewed and interpreted this imaging study as follows: (severe atherosclerosis, scoliosis, hiatal hernia, slightly irregular liver edges) Assessment and Plan (1) Anemia: Qualifiers: Iron deficiency anemia type: other iron deficiency Status: Acute Plan 1/Anemia with reported overt GI blood loss whilst on eliquis, many possibilites incl diverticular bleed, hemorrhoids, colon ca, Terry erosion and esophageal erosions, unlikely to be ischemic colitis, HGB has been stable and no bleeding as in patient. LFT nml and I do not believe she has varices based on imaging PLAN: 1/ OR can accomodate EGD, colonoscopy this Tuesday as o/p. If hGB remains stable then can d/c tomorrow on clear liquid diet, prep has been sent by me and procedue scheduled for Tuesday morning. if HGB not stable then will do as in patient. Discussed with Alexus who is in agreement with plan, hold eliquis till after testing. 2/ GERD precautions, cont with omeprazole as doing. Procedures Date of Service Date of Service: 05/12/22
[2022-05-13] VITALS: BP 149/67; PULSE 69; RESP 17; TEMP 36.2; O2SAT 96
[2022-05-13 04:00] VITALS: BP 145/67; PULSE 71; RESP 18; TEMP 36.4; O2SAT 97
[2022-05-13 05:59] LABS: Hematocrit 26.6 % (37.0-47.0); Hemoglobin 8.5 g/dl (12.0-16.0); Mean Corpuscular Hemoglobin 27.7 pg (27.0-33.0); Mean Corpuscular Volume 86.6 fL (80.0-98.0); Mean Platelet Volume 9.7 fL (9.4-12.3); Platelet Count 158 X10*3/uL (160-400); Red Blood Count 3.07 X10*6/uL (4.20-5.50); Red Cell Distribution Width 17.4 % (11.0-16.0); White Blood Count 4.7 X10*3/uL (4.8-10.8)
[2022-05-13 06:15] LABS: Iron 24 mcg/dL (30-160); Percent Iron Saturation 9 % (15-50); Total Iron Binding Capacity 266 mcg/dL (228-428); Unsaturated Iron Binding 242 ug/dL
[2022-05-13] MEDS: Omeprazole 20 MG CAPSULE.DR PO (06:21)
[2022-05-13 07:05] VITALS: BP 138/68; PULSE 64; RESP 18; TEMP 36.6; O2SAT 95
[2022-05-13] MEDS: Acetaminophen 325 MG TABLET 650 MG PO (10:42)
[2022-05-13] MEDS: Potassium Chloride Packet 20 MEQ PACKET PO (10:43)
[2022-05-13] MEDS: 0.9 % Sodium Chloride Flush 3 ML SYRINGE IVFLUSH (10:43)
[2022-05-13] MEDS: FLUoxetine HCl 20 MG CAPSULE 40 MG PO (10:43)
[2022-05-13] MEDS: carvediloL 6.25 MG TABLET PO (10:43)
[2022-05-13] MEDS: Calcium + Vitamin D 250 MG TABLET PO (10:43)
[2022-05-13] MEDS: Sodium Ferric Gluconat/Sucrose 125 MG in 0.9 % Sodium Chloride 100 ML 100 MG IV (11:09)
--- NOTE | 2022-05-13 11:34 | MHC.CM.PN ---
PLAN IS FOR PATIENT TO RETURN HOME TODAY - SELF CARE WITH FAMILY SUPPORTS. IMM 05/12 PREVIOUSLY COMPLETED. FAMILY TO TRANSPORT.
--- NOTE | 2022-05-13 12:10 | PM.DS ---
DS: Providers Provider Date of Service: 05/13/22 Date of admission: 05/11/22 17:45 Primary care physician: Jeremy Dennison MD Consults: 05/11/22 17:44 Consult to Gastroenterology Routine Consulting Provider: Cristina Garner Reason for consultation: GI bleed Has provider been notified: No DS: Diagnosis Discharge Diagnosis (1) Anemia: Status: Acute DS: Summary Hospital Course Hospital Course: Chief Complaint: blood in stool 69-year-old woman stenting to the ER after being seen by her primary care provider after being found to have bright red blood per rectum per her [id number] with whom she lives with.? Her acyetnec-[id number] was present during the interview and was able to use sign language to translate.? She has had generalized weakness, increased confusion and possibly coughing up food pink-tinged sputum with associated nausea vomiting and lower abdominal pain.? She has had bright red blood stools that the [id number] had noticed last .? The eqilbfuh-mx-rkf is unable to quantify any amount of red blood vomitus.? Apparently the patient has also had some shortness of breath especially with ambulation.? According to the [id number] she has not had any fever, chills, diarrhea, recent travel, recent illness, sick contacts.? In the ER, her H&H was noted to be 6.9/22.1, creatinine 1.78 without known baseline , stool occult positive, stable blood pressure, 2 units of packed red blood cells were ordered.? Patient be admitted for further management and treatment of acute blood loss anemia.? Hospital course 77-year-old woman with past medical history of hypertension, atrial fibrillation, coronary artery disease admitted with acute blood loss anemia noted to have bright red blood per rectum at home witnessed by daughter in law Patient admitted to [facility] with a diagnosis of Acute blood loss anemia, stool occult positive on admission, during course of hospitalization patient had No episodes of hematemesis, bright red blood per rectum or hematochezia patient treated with 2 unit of packed RBC H&H improved from 6.9/22.1 to 8.5/26.8 iron studies showed low iron and saturation, TIBC within normal range of 266 and normal MCV, received 1 dose of IV iron, patient seen in consultation by Dr. Mistry son and he recommend outpatient upper endoscopy and colonoscopy that has been scheduled for Tuesday morning 05/14/2022 patient has been recommended to take clear liquid diet and bowel prep as recommended by GI, she is recommended to hold aspirin and Eliquis SUSAN. Patient noted to have acute renal failure on admission therefore Lasix and valsartan was held patient treated with fluids renal function normalized she is recommended to hold Lasix and dose of valsartan reduced to 40 mg since noted to have soft blood pressures on admission, recommend to follow-up with cardiology and primary care physician for medication adjustment Hypertension is stable BP take valsartan 40 mg and Coreg Coronary artery disease no acute chest pain or shortness of breath continue Coreg, hold aspirin Atrial fibrillation hold Eliquis and resume as per Gastroenterology recommendation after upper and lower endoscopy Time Spent with Patient Time attestation: Total time spent providing and/or coordinating discharge services: Discharge coordination time: Greater than 30 minutes Quality: Safe Use of Opioids Does Pt have an Active Cancer Diagnosis on the Problem List?: No Quality: Stroke Does the patient have a stroke diagnosis?: No Physical Exam Vital Signs: Vital Signs: Last Vital Signs Temp 97.8 F 05/13/22 07:05 Pulse 64 05/13/22 07:05 Resp 18 05/13/22 07:05 BP 138/68 05/13/22 07:05 Pulse Ox 95 05/13/22 07:05 O2 Del Method 05/13/22 07:05 BMI result Body Mass Index 23.8 Const: Other: General awake aler t x3, resting comf ortably in no acut e distress.? Neck? supple no JVD. CV S? regular rate rh ythm, Respiratory lungs clear to aus cultation, no resp iratory distress, no wheeze, no rhon chi. Gastrointesti nal abdomen soft, nontender, bowel s ounds audible, no guarding , no rigi dity. Extremities no edema. Neuro no n focal Skin no ra sh Psych appropria te affect DS: Data Data Completed and Pending Labs on day of discharge: Laboratory Results - last 24 hr 05/11/22 05/13/22 05/13/22 11:57 05:19 05:19 WBC 4.7 L RBC 3.07 L Hgb 8.5 L Hct 26.6 L MCV 86.6 MCH 27.7 MCHC 32.0 RDW 17.4 H Plt Count 158 L MPV 9.7 Absolute Nucleated RBC 0.000 Nucleated RBC % (auto) 0.0 Smear Path Review Iron 24 L TIBC 266 % Saturation 9 L Unsat Iron Binding 242 Discharge Plan Discharge Patient Disposition: Home, Self-Care Discharge Diagnosis: Acute blood loss anemia Acute kidney injury Atrial fibrillation Referrals: Jeremy Dennison MD [Primary Care Provider] - 1 Week Discharge Medications: Continued peg-electrolyte soln 420 gram recon soln 240 ml PO Q10M Qty: 4000 0RF Rx Instructions: Take half between 6-8 pm and then half between 10pm-12 am bisacodyl [Dulcolax (bisacodyl)] 5 mg tablet,delayed release (DR/EC) 20 mg PO ONCE 1 Days Qty: 4 0RF Rx Instructions: take at 6 pm day before colonoscopy ondansetron 4 mg tablet,disintegrating 4 mg PO Q8H PRN (Reason: nausea and vomiting) Qty: 3 0RF Rx Instructions: can take with bowel prep for colonoscopy if needed fluoxetine 40 mg capsule 1 cap PO DAILY atorvastatin 80 mg tablet 1 tab PO DAILY carvedilol 6.25 mg tablet 1 tab PO BID calcium carbonate-vitamin D3 [Calcium 600 + D(3)] 600 mg-5 mcg (200 unit) Tablet 1 tab PO TID nitroglycerin 0.4 mg Tablet, Sublingual 0.4 mg SUBLINGUAL Q5M PRN (Reason: Chest Pain) Rx Instructions: do not exceed 3 doses per episode omeprazole 20 mg capsule,delayed release(DR/EC) 1 cap PO DAILY gabapentin 100 mg capsule 1 cap PO BID PRN (Reason: foot pain) albuterol sulfate [ProAir HFA] 90 mcg/actuation Hfa Aerosol Inhaler 2 puff INHALATION Q4H PRN (Reason: Wheezing) Changed valsartan 40 mg tablet 40 mg PO DAILY Qty: 30 0RF Discontinued furosemide 40 mg tablet 1 tab PO DAILY potassium chloride 20 mEq packet 1 packet PO DAILY aspirin 81 mg Tablet,Chewable 81 mg PO DAILY Eliquis 5 mg tablet 1 tab PO BID Discharge Orders: Discharge Order (Routine); Ordered 05/13/22 Ordered By: Jennifer Ennis Diet: Low fat, low cholesterol Activity on Discharge: As tolerated Stand Alone Forms: Patient Portal Discharge page Care Plan Goals: Returned to [facility] on Tuesday05/14/22 morning for upper endoscopy and colonoscopy as outpatient take clear liquid diet today and take bowl preperation that has been sent to your pharmacy, hold aspirin and Eliquis, resume as per Gastroenterology recommendations after endoscopy Hold Lasix, dose of valsartan reduced to 40 mg once daily, resume Lasix if noted to have 3 lb weight gain in 2-3 days Follow-up with cardiology to adjust cardiac medications Health Concerns: Resume all other home medication as before Plan of Treatment: Outpatient follow-up with primary care physician, Cardiology and with Gastroenterology Return to [facility] tomorrow morning for upper endoscopy and colonoscopy as recommended by Gastroenterology Assessment: As per Discharge summary
--- NOTE | 2022-05-13 13:20 | MHC.CM.PN ---
CALL FROM PATIENT'S [facility], MODESTA SHE IS AWARE OF TODAY'S DC AND PATIENT'S SON IS ON HIS WAY TO TRANSPORT. RN MADE AWARE
== END 2022-05-13 15:01 | disposition home or self-care (01) | DRG 378 ==
LOC: HO.ED 17:13 → HO.EDOVER 18:08 → HO.S3 19:45
PROVIDERS: Physician Assistant Medical; Admitting Provider Nurse Practitioner Acute Care; Emergency Provider Emergency Medicine Emergency Medical Services; PCP Internal Medicine; Visit Provider Hospitalist
DX: K62.5 Hemorrhage of anus and rectum (principal); D62 Acute posthemorrhagic anemia; N17.9 Acute kidney failure, unspecified; I25.10 Atherosclerotic heart disease of native coronary artery without angina pectoris; H91.93 Unspecified hearing loss, bilateral; Z20.822 Contact with and (suspected) exposure to COVID-19; Z95.810 Presence of automatic (implantable) cardiac defibrillator; Z87.891 Personal history of nicotine dependence; Z91.030 Bee allergy status; Z79.899 Other long term (current) drug therapy
CPT/HCPCS: 36415; 36430; 71045; 74176; 78580; 80048; 80076; 81001; 82272; 83540; 83690; 83735; 83880; 84484; 85014; 85018; 85025; 85027; 86850; 86900; 86901; 86923; 87086; 87088; 87186; 87635; 93005; 96360; 96361; 99285; A9540; J2916; P9016

== ENCOUNTER 2022-05-14 07:26 | Day surgery (SDC) | payer MEDICARE, OTHER, SELFPAY ==
--- NOTE | 2022-05-13 12:07 | P.CONAN_ITS ---
Documented by User: Melissa Urena NP 05/13/22 13:59 HPI - Anesthesia Eval Consult details Narrative: 77yo F for Upper Endoscopy and Colonoscopy ICD in situ. (EF 25-30% per cardiology note). Interrogation not available but per note, no VT or VF Eliquis for afib. On hold d/t GIB. Deaf, non-verbal, dementia. 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 Was admitted with GI bleed, low H&H, transfused 2 units PRBC PMFSH Active Problems Active Problems: All Active Problems (Updated 05/12/22 @ 20:28 by Cristina Garner MD) General weakness (Acute) Anemia (Acute) SUSAN (acute kidney injury) (Acute) Fecal occult blood test positive (Acute) Diverticulosis (Acute) Dementia (Acute) Hyperlipidemia (Acute) Hypertension (Acute) Past Medical History Medical History (Updated 05/14/22 @ 08:15 by Christa Almodovar, DANIEL) Coronary artery disease Deaf Dementia Diverticulosis GERD (gastroesophageal reflux disease) GI bleeding Hiatal hernia Hypertension Liver cirrhosis Scoliosis Surgical History Surgical History (Updated 05/14/22 @ 08:16 by Christa Almodovar, DANIEL) AICD (automatic cardioverter/defibrillator) present History of permanent cardiac pacemaker placement Social History Social History Household Members: Children Housing: House Do you presently have visiting nurse or other home services: Yes Alcohol intake: never Patient Tobacco Use Status: Former Tobacco user Quit Date: 5 years ago Use of substances other than those prescribed or required for medical reasons: No Are you DNR?: No Advance Directives: Yes Advance Directives on File: Yes Advance Directives Date on File: 05/11/22 service: No Current occupational status: disabled Meds Allergies Allergy/AdvReac Type Severity Reaction Status Date / Time bee pollen [bee stings] Allergy Unknown Verified 05/11/22 11:45 Home Medications Medication Instructions Recorded Confirmed Last Taken Type albuterol sulfate 90 mcg/actuation 2 puff inhalation Q4H PRN Wheezing 05/11/22 05/11/22 Unknown History aerosol inhaler (ProAir HFA) atorvastatin 80 mg tablet 1 tab PO DAILY 05/11/22 05/11/22 05/10/22 History calcium carbonate 600 mg-vitamin 1 tab PO TID 05/11/22 05/11/22 05/10/22 History D3 5 mcg (200 unit) tablet (Calcium 600 + D(3)) carvedilol 6.25 mg tablet 1 tab PO BID 05/11/22 05/11/22 05/10/22 History fluoxetine 40 mg capsule 1 cap PO DAILY 05/11/22 05/11/22 05/10/22 History gabapentin 100 mg capsule 1 cap PO BID PRN foot pain 05/11/22 05/11/22 Unknown History nitroglycerin 0.4 mg sublingual 0.4 mg sublingual Q5M PRN Chest 05/11/22 05/11/22 Unknown History tablet Pain omeprazole 20 mg capsule,delayed 1 cap PO DAILY 05/11/22 05/11/22 05/10/22 History release Exam Exam Date and Time: May 13, 2022 1207 Pertinent Lab Results Pertinent Lab Results: Laboratory Tests 05/12/22 05/13/22 06:10 05:19 WBC 4.7 L Hgb 8.5 L Hct 26.6 L Plt Count 158 L Sodium 142 Potassium 4.3 Chloride 113 H Carbon Dioxide 21 L BUN 38 H Creatinine 1.16 Narrative Narrative: EKG 05/11/22 Vent. Rate : 068 BPM ? ? Atrial Rate : 068 BPM ?? P-R Int : 096 ms? QRS Dur : 146 ms ? ? QT Int : 448 ms ? ? ? P-R-T Axes : 023 -71 063 degrees ?? QTc Int : 476 ms ? Sinus rhythm with short PA Left axis deviation Right bundle branch block Septal infarct , age undetermined Abnormal ECG No previous ECGs available ECHO 09/2021 LV moderately dilated. LV wall thickness is mildly increased. LV systolic function is severely reduced. LVEF 20-30%. Abnormal septal motion c/w conduction abnormality. Amorita is dyskinetic. Basal to mid inferior wall is akinetic. Indeterminate diastolic dysfunction. RV size and function appear grossly normal. LA mildly dilated. Mild tricuspid valve regurg Normal CVP and PASP estimate. Chest X-Ray? 05/11/22 12:08 IMPRESSION: 1. Postsurgical changes in the right lung without acute cardiopulmonary process. 2. Mild cardiac enlargement. 2. Small hiatal hernia. ? Abdomen/Pelvis CT? 05/11/22 13:28 IMPRESSION: No acute findings. Mild cirrhotic changes of the liver. Diverticulosis of the colon. Esophageal hernia. ? Fleischner guidelines were followed. Pulmonary Perfusion Imaging? 05/11/22 16:30 IMPRESSION: No segmental or subsegmental defect seen in the lungs to suspect any PE. However there is diminished activity seen in the right upper and midlung likely secondary to chest wall attenuation Assessment and Plan Assessment Anesthesia Assessment: Chart Reviewed Documented by User: Margarita Lennon MD 05/14/22 08:36 [facility] Past Medical History Medical History (Updated 05/14/22 @ 08:15 by Christa Almodovar, DANIEL) Coronary artery disease Deaf Dementia Diverticulosis GERD (gastroesophageal reflux disease) GI bleeding Hiatal hernia Hypertension Liver cirrhosis Scoliosis Family History Family history of problems with anesthesia: No Surgical History Surgical History (Updated 05/14/22 @ 08:16 by Christa Almodovar, DANIEL) AICD (automatic cardioverter/defibrillator) present History of permanent cardiac pacemaker placement History of Problems with Anesthesia: No Social History Social History Household Members: Children Housing: House Do you presently have visiting nurse or other home services: Yes Alcohol intake: never Patient Tobacco Use Status: Former Tobacco user Quit Date: 5 years ago Use of substances other than those prescribed or required for medical reasons: No Are you DNR?: No Advance Directives: Yes Advance Directives on File: Yes Advance Directives Date on File: 05/11/22 service: No Current occupational status: disabled Meds Allergies Allergy/AdvReac Type Severity Reaction Status Date / Time bee pollen [bee stings] Allergy Unknown Verified 05/11/22 11:45 Home Medications Medication Instructions Recorded Confirmed Last Taken Type albuterol sulfate 90 mcg/actuation 2 puff inhalation Q4H PRN Wheezing 05/11/22 05/11/22 Unknown History aerosol inhaler (ProAir HFA) atorvastatin 80 mg tablet 1 tab PO DAILY 05/11/22 05/11/22 05/10/22 History calcium carbonate 600 mg-vitamin 1 tab PO TID 05/11/22 05/11/22 05/10/22 History D3 5 mcg (200 unit) tablet (Calcium 600 + D(3)) carvedilol 6.25 mg tablet 1 tab PO BID 05/11/22 05/11/22 05/10/22 History fluoxetine 40 mg capsule 1 cap PO DAILY 05/11/22 05/11/22 05/10/22 History gabapentin 100 mg capsule 1 cap PO BID PRN foot pain 05/11/22 05/11/22 Unknown History nitroglycerin 0.4 mg sublingual 0.4 mg sublingual Q5M PRN Chest 05/11/22 05/11/22 Unknown History tablet Pain omeprazole 20 mg capsule,delayed 1 cap PO DAILY 05/11/22 05/11/22 05/10/22 History release Exam Airway Mallampati Class: II TM Dist: >3cm Neck ROM: Full Heart: rrr Lungs: cta Assessment and Plan Assessment Anesthesia Assessment: Anesthesia Plan Discussed and Chart Reviewed Final Anesthetic Review Family History of Problems with Anesthesia: No History of Problems with Anesthesia: No NPO: Yes ASA Class: IV Final Preanesthetic Review: No Changes in Pt Med Stat, Meds/Allgs Chart Reviewed and Consent Obtained/Reviewed Patient Risk: Intermediate Procedure Risk: Intermediate Anesthetic Plan Anesthetic Plan: MAC: Disposition: Standard PACU
[2022-05-14 07:51] VITALS: BP 137/60; PULSE 62; RESP 18; TEMP 36.6; O2SAT 97; BMI 24.1
[2022-05-14] MEDS: Lactated Ringers 1,000 ML 100 ML IVCONT (08:10)
--- NOTE | 2022-05-14 08:26 | MHC.SHP ---
Pre-Procedural Eval Section A Date of Service: 05/14/22 The patient is an INPATIENT: No The History & Physical has been completed within 30 days and I have reviewed it.: Yes Section B Chief Complaint: anemia Allergies: Allergies Allergy/AdvReac Type Severity Reaction Status Date / Time bee pollen [bee stings] Allergy Unknown Verified 05/11/22 11:45 Plan Diagnosis/Plan: Unchanged I have reviewed the history and physical and performed a pertinent physical examination on my patient. No changes have occurred unless specified.
--- NOTE | 2022-05-14 08:43 | P.OP_ITS ---
Operative Note Operative Note Date of Service: 05/14/22 Narrative: Operative Information Procedure Description: EGD, Colonoscopy Indication: anemia Anesthesia: MAC FLEXIBLE TRANSORAL UPPER GASTROINTESTINAL ENDOSCOPY AND COLONOSCOPY PROCEDURE NOTE UPPER ENDOSCOPY Consent: Indications for the procedure and potential complications of bleeding, perforation, reaction to medications and missed diagnosis were discussed with the patient and informed consent was obtained. Instrument: Olympus GIF H 190 J mid size upper endoscope Monitoring: Vital signs and clinical assessment, continuous EKG monitoring, Pulse oximetry, Carbon Dioxide monitoring and blood pressure monitoring were done throughout the procedure. Procedure: The patient was placed in the left lateral decubitis position and pre-procedure medications were administered and a bite block was placed. The endoscope was inserted into the mouth and advanced under direct vision to the third part of duodenum. A careful inspection was made as the upper endoscope was withdrawn including a retroflexed examination of the proximal stomach; Findings and interventions are described below. Findings: Larynx:normal Esophagus: GE junction at 37 cm, diaphragm hiatus at 40 cm, consistent with 3 cm fixed hiatal hernia normal mucosa Stomach: Patchy erythema. Biopsies were obtained. Grade 2 flap valve on retroflexed examination of the cardia. Duodenum: Normal bulb and descending duodenum, Intervention: Biopsies as noted above COLONOSCOPY Instrument: Olympus variable stiffness pediatric scope 190L Colonoscopy Monitoring: Vital signs and clinical assessment, continuous EKG monitoring, Pulse oximetry, Carbon Dioxide monitoring and blood pressure monitoring were done throughout the procedure. Colon withdrawal time was 10 minutes. Procedure: The patient was placed in the left lateral decubitis position and pre-procedure medications were administered. After a digital rectal examination of the ano-rectum, the video colonoscope was inserted into the rectum and advanced through the colon to the cecum/TI. The colonoscope was slowly withdrawn in a retrograde panoramic fashion and the colon mucosa was carefully examined including a retroflexed view of the rectum. Findings and interventions are described below. Procedure Difficulty:easy Findings: Terminal Ileum-normal Cecum:normal Ascending Colon: several wide mouthed diverticula seen Transverse Colon -normal Descending Colon:normal Sigmoid Colon: severe diverticulosis with luminal narrowing Rectum: Retroflexion with large internal hemorrhoids, grade II with red ruffin Anorectum - internal hemorrhoids seen at anal verge Colon preparation: [place] Bowel Preparation Scale Right colon; 3 Transverse colon: 3 Left colon; 3 (0 = Unprepared colon segment with mucosa not seen due to solid stool that cannot be cleared. 1 = Portion of mucosa of the colon segment seen, but other areas of the colon segment not well seen due to staining, residual stool and/or opaque liquid. 2 = Minor amount of residual staining, small fragments of stool and/or opaque liquid, but mucosa of colon segment seen well. 3 = Entire mucosa of colon segment seen well with no residual staining, small fragments of stool or opaque liquid) Impression and Post Procedure Diagnosis: Endoscopy Findings: hiatal hernia gastritis Colonoscopy Findings: internal hemorrhoids diverticular disease Imp: anemia from hemorrhoidal bleeding Plan: Await Pathology results Repeat Colonoscopy as needed High fiber diet leaflet avoid straining at stool, epsom salts and sitz bath, anusol supps or cream if ongoing sx then surgical referral can restart blood thinners tomorrow Above findings were reviewed with the patient and relevant handouts were provided if indicated.
[2022-05-14 09:20] VITALS: BP 118/51; PULSE 60; RESP 16; TEMP 36.6; O2SAT 95
[2022-05-14 09:35] VITALS: BP 118/48; PULSE 61; RESP 18; O2SAT 94
[2022-05-14 09:50] VITALS: BP 114/53; PULSE 72; RESP 18; O2SAT 94
[2022-05-14 10:05] VITALS: BP 126/60; PULSE 68; RESP 19; TEMP 36.9; O2SAT 95
== END 2022-05-14 10:53 | disposition home or self-care (01) ==
LOC: HO.SSS 07:26
PROVIDERS: PCP Internal Medicine; Visit Provider Internal Medicine Gastroenterology
PROC: (CPT 45378; principal; 2022-05-14 08:30)
DX: D50.9 Iron deficiency anemia, unspecified (principal); K57.30 Diverticulosis of large intestine without perforation or abscess without bleeding; K64.1 Second degree hemorrhoids; K21.9 Gastro-esophageal reflux disease without esophagitis; K29.50 Unspecified chronic gastritis without bleeding; K44.9 Diaphragmatic hernia without obstruction or gangrene; K74.60 Unspecified cirrhosis of liver; I25.10 Atherosclerotic heart disease of native coronary artery without angina pectoris; I10 Essential (primary) hypertension; E78.5 Hyperlipidemia, unspecified; R53.1 Weakness; F03.90 Unspecified dementia, unspecified severity, without behavioral disturbance, psychotic disturbance, mood disturbance, and anxiety; F10.21 Alcohol dependence, in remission; H91.90 Unspecified hearing loss, unspecified ear; R06.02 Shortness of breath; M41.9 Scoliosis, unspecified; Z95.810 Presence of automatic (implantable) cardiac defibrillator; Z79.82 Long term (current) use of aspirin; Z79.01 Long term (current) use of anticoagulants; Z79.899 Other long term (current) drug therapy; Z87.891 Personal history of nicotine dependence
CPT/HCPCS: 45378; 43239; 88305; 88342; J2250; J3010

== ENCOUNTER 2023-08-22 07:35 | Outpatient (REF) | payer MEDICARE, OTHER, SELFPAY ==
--- NOTE | ~2023-08-22 | FL_ITS ---
EXAMINATION: FL BARIUM SWALLOW CLINICAL INFORMATION: Dysphasia COMPARISON: None TECHNIQUE: Fluoroscopic air contrast upper GI examination was performed utilizing standard techniques with thin and thick barium and effervescent granules. Numerous spot images were obtained. FINDINGS: Lateral cine images of the oropharynx and hypopharynx demonstrate normal swallow mechanism with normal epiglottic inversion and soft palate elevation. There is laryngeal penetration with the thick barium. No tracheal penetration, glottic or subglottic aspiration identified. No nasopharyngeal reflux present. There is a filling defect at the level of the upper esophageal sphincter consistent with an esophageal web. 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 Dual and single contrast images of the esophagus demonstrate an esophageal diverticulum at the level of the aortic arch. No other strictures, masses, or ulcerations are identified. There are nonpropulsive tertiary contractions noted throughout the esophagus, consistent with esophageal dysmotility. A large type III hiatal hernia is present. The majority of the gastric fundus is intrathoracic. No significant gastroesophageal reflux was seen during the course of the examination and on reflux views. The aortic arch is heavily calcified. AICD device present. FLUOROSCOPY TIME: 4 minutes 35 seconds Number of Spot Images: 6 Number of Cine: 8 DOSE AREA PRODUCT: 1351 uGy-m2 (microgray-meter squared) FL/FL barium swallow with air IMPRESSION: 1. Laryngeal penetration with thick barium. No tracheal or subglottic aspiration present. 2. 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 5. Severe esophageal dysmotility 6. Large type III hiatal hernia. The majority of the gastric fundus is intrathoracic. This procedure was performed by Marco Khan PA-C, and supervised by Dr. Price
== END 2023-08-22 07:36 | disposition home or self-care (01) ==
LOC: HO.XRAY 07:35
PROVIDERS: PCP Internal Medicine; Visit Provider Otolaryngology
DX: R13.10 Dysphagia, unspecified (principal)
CPT/HCPCS: 74221

== ENCOUNTER → 2023-08-22 07:38 | Outpatient (BNV) | payer MEDICARE, OTHER, SELFPAY | PROVIDERS: PCP Internal Medicine; Visit Provider Radiology Diagnostic Radiology | DX: R13.10 Dysphagia, unspecified (principal) | CPT/HCPCS: 74221 ==